=== PATIENT | male | born 1995 | race Two or more races ===

== ENCOUNTER 2016-12-17 12:04 | Emergency (ER) | payer MEDICAID ==
[~2016-12-17] VITALS: Ht 172.7 cm; Wt 108.9 kg
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
== END 2016-12-17 12:50 | disposition home or self-care (01) ==
LOC: ER 12:06
DX: T63.461A Toxic effect of venom of wasps, accidental (unintentional), initial encounter (principal); Y92.9 Unspecified place or not applicable
CPT/HCPCS: A4663